=== PATIENT | female | born 1995 | race Caucasian/White ===

== ENCOUNTER 2024-04-27 16:41 | Outpatient (CLI) | payer OTHER, SELFPAY ==
[2024-04-28 17:53] LABS: Beta HCG Quantitative 73.32 mIU/ML
== END 2024-04-27 16:42 | disposition home or self-care (01) ==
LOC: ANHLAB 16:46
PROVIDERS: PCP Pediatrics; Visit Provider Obstetrics & Gynecology
DX: Z32.00 Encounter for pregnancy test, result unknown (principal)
CPT/HCPCS: 36415; 84702

== ENCOUNTER 2024-05-01 16:14 | Outpatient (CLI) | payer OTHER, SELFPAY ==
[2024-05-01 17:49] LABS: Beta HCG Quantitative 447.24 mIU/ML
== END 2024-05-01 16:15 | disposition home or self-care (01) ==
LOC: ANHLAB 16:16
PROVIDERS: PCP Pediatrics; Visit Provider Obstetrics & Gynecology
DX: Z32.00 Encounter for pregnancy test, result unknown (principal)
CPT/HCPCS: 36415; 84702

== ENCOUNTER 2024-12-14 11:17 | Outpatient (CLI) | payer OTHER, SELFPAY ==
--- OUTSIDE RECORDS SUMMARY | 2024-12-14 11:24 | XMS_ITS | Clinical Summary ---
Author Organization [facility] Virtual Care Address [address] [place] [phone] Phone Care Team Providers Care Butane Compressor Operator Name Role Phone Unknown, Notinfile Unavailable Unavailable Usman Gottlieb MD Primary Care Provider [phone] Zarina Owens MD Unavailable [phone] Beka Lo MD Unavailable [phone] Allergies No known active allergies Medications vit no.124/iron/foli c ( VITAMIN ORAL) Take by mouth Active Active Problems Problem Noted Date Diagnosed Date Encounter for well adult exam without abnormal f indings 02/25/2021 Assessment & Plan (02/25/2021 10:28 AM CDT): A yearly well adult exam has been performed today. Lillian Calloway is up to date on screening tests. She is in need of None- no screening indicated at this time- these have been ordered. She is not up to date on needed preventative vaccinations; She is in need of Tdap/Td and Influenza. These have been ordered/arranged unless otherwise indicated. Oral contraceptive use 11/15/2017 Contraceptive management 08/28/2015 Overview (10/05/2024): Encounter for initial prescription of other contraceptives;Recorded Elsewhere: No Location: [facility] Source: EHR Chronic: N Practice ID: [id number] Billable Time: 03:00:00 PM Encounter for specialized medical examination Acute upper respiratory infection 07/19/2014 Neoplasm of uncertain behavior of skin 3 Acne 05/17/2012 Estimated Date of Delivery Comme nts Yes 01/11/2025 Encounters Date Type Department Care Team Description 10/05/2024 3:30 PM CDT Office Visit [facility] Primary Care at [address] [phone] Usman Gottlieb MD Well adult exam (Primary Dx); Mixed hyperlipidemia; Need for hepatitis C screening test 10/02/2024 Results Follow-Up [facility] Primary Care at [address] [phone] Usman Gottlieb MD Lipid panel 09/27/2024 3:46 PM CDT - 09/27/2024 11:59 PM CD[place] [address] Lipid screening Discharge Disposition: Discharge to home or self care 09/27/2024 3:45 PM CDT Lab [facility] Outpatient Lab at [address] [phone] from Last 3 Months Immunizations Immunization Administration Dates Next Due DTaP 5 Pertussis 12/20/2002, 0,05/17/1998,03/14,01/07/1998 HPV, Quadrivalent 08/20/2012 HPV, Unspecified 08/20/2012,03/16/2012, 2 Hep A, Unspecified 01/06/2012,10/10/2007 Hep B, Unspecified 08/16/1998,1997, 998 HiB 05/13/1999, 9,03/14/1998,01/07 IPV 12/20/2002, 9,03/14/1998,01/07 Influenza, Quadrivalent, Spl it, Intramuscular 01/25/2015 Influenza, Quadrivalent, Spl it, Preservative Free, Intramuscular 02/24/2021,02/22/2019 Influenza, Trivalent, Preser vative Free, Intramuscular 04/02/2016 Influenza, Unspecified 02/22/2020(Deferr ed: Patient Refused),01/25/2015,03/16/2012 MMR 12/20/2002,1998 Meningococcal ACWY, Unspecified 01/25/2015,12/12 Meningococcal B, OMV (Bexsero) 09/06/2018,2018 Meningococcal B, unspecified 09/06/2018,08/06/19 19 Meningococcal MCV4P (Menactra) 01/25/2015 PPD TEST 12/01/2021,1998 Tdap 01/17/2010 Varicella 10/10/2007,02/10/1999 Surgical History Surgery Date Site/Laterality Comments ADENOIDECTOMY 05/10/2000 - 05/09/2001 MYRINGOTOMY W/ TUBES 05/10/2000 - 05/09/2001 Medical History Medical History Date Comments Hyperhidrosis Family History Medical History Relation Name Comments No Known Problems Father Cancer Maternal Grandfather Abdulaziz Piedra Rheum arthritis Maternal Grandfather Abdulaziz Piedra Stomach cancer Maternal Grandfather Abdulaziz Piedra No Known Problems Maternal Grandmother No Known Problems Mother No Known Problems Paternal Grandfather No Known Problems Paternal Grandmother No Known Problems Sister Relation Name Status Comments Father Alive Maternal Grandfather Abdulaziz Piedra Maternal Grandmother Alive Mother Alive Paternal Grandfather Alive Paternal Grandmother Alive Sister Alive Social History Tobacco Use Types Packs/Day Years Used Date Smoking Tobacco: Never Smokeless Tobacco: Never Alcohol Use Standard Drinks/Week Comments No 0 (1 standard drink = 0.6 oz pur e alcohol) Humiliation, Afraid, Rape, and Kick questionnair e Answer Date Recorded Within the last year, have y ou been afraid of your partner or ex-partner? No 02/24/2021 Within the last year, have y ou been humiliated or emotionally abused in other ways by your partner or ex-partner? No Within the last year, have y ou been kicked, hit, slapped, or otherwise physically hurt by your partner or ex-partner? No 02/24/2021 Within the last year, have y ou been raped or forced to have any kind of sexual activity by your partner or ex-partner? No 02/24/2021 Social Connection and Isolat ion Panel [NHANES] Answer Date Recorded In a typical week, how many times do you talk on the phone with family, friends, or neighbors? More than three times a week 02/24/2021 Frequency of Social Gatherin gs with Friends and Family Not on file 02/24/2021 How often do you attend chur ch or faith services? Never 02/24/2021 Do you belong to any clubs o r organizations such as adventist groups, unions, fraternal or athletic groups, or school groups? No 02/24/2021 How often do you attend meet ings of the clubs or organizations you belong to? Never 02/24/2021 Are you , , di vorced, , never , or living with a partner? Living with partner 02/24/2021 AUDIT-C Answer Date Recorded Q1: How often do you have a drink containing alcohol? Never 10/05/2024 Q2: How many drinks containi ng alcohol do you have on a typical day when you are drinking? Patient does not drink Q3: How often do you have si x or more drinks on one occasion? Never 10/05/2024 PHQ-2 Answer Date Recorded PHQ-2 Total Score (If total score is 3 or more points, staff should administer the PHQ-9) 0 10/05/2024 Exercise Vital Sign Answer Date Recorde d On average, how many days pe r week do you engage in moderate to strenuous exercise (like a brisk walk)? 0 days Minutes of Exercise per Session Not on file 02/24/2021 Education Answer Date Recorded What is the highest level of school you have completed or the highest degree you have received? 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 Not on file Not on file Obstetrics History Para Term AB IAB SAB Ectopic Multiple Livin g Live Births 1 Date Outcome GA Total Labor Labor/2nd/3rd Weight Sex Type Anes PTL Angela A1 A5 Name Clin Current Last Filed Vital Signs Vital Sign Reading Time Taken Comments Blood Pressure 120/74 10/05/2024 3:29 PM CDT Pulse 91 10/05/2024 3:29 PM CDT Temperature 36 C (96.8 F) 10/05/2024 3:29 PM CDT Respiratory Rate 14 10/05/2024 3:29 PM CDT Oxygen Saturation 98% 10/05/2024 3:29 PM CDT Inhaled Oxygen Concentration - - Weight 72.6 kg (160 lb) 10/05/2024 3:29 PM CDT Height 160 cm (5' 3) 10/05/2024 3:29 PM CDT Body Mass Index 28.34 10/05/2024 3:29 PM CDT Plan of Treatment Health Maintenance Due Date Last Done Comments Cervical Cancer Screening 1997 Hepatitis C Screening 1997 DTaP/Tdap/Td Vaccine (7 - Td or Tdap) 01/18/2020 01/17/2010, 12/20/2002, 05/13/1999, Additional history exists Covid-19 Vaccine ( season) 2024 05/25/2021, 08/03/2020, 07/09/2020 Influenza Vaccine (#1) 2025 , 02/22/2019, 04/02/2016, Additional history exists Depression Screening 10/05/2025 10/05/2024, 02/25/20 21 Regular Well Visit/Exam 18-64 10/05/2025 10/05/2024, 02/24/2021 Hepatitis B Screening Completed 08/16/1998 , 1997, 1997 Varicella Vaccines Completed 10/10/2007, 02/10/1999 HPV Vaccines Completed 08/20/2012, 08/08, 03/16/2012, Additional history exists Pneumococcal vaccine <65 Aged Out No longer eligible based on patient's age to complete this topic Procedures Procedure Name Priority Date/Time Associated Diagnosis Comments LIPID PANEL Routine 09/27/2024 3:46 PM CDT Lipid screening from Last 3 Months Results * (ABNORMAL) Lipid panel (09/27/2024 3:46 PM CDT) Cholesterol 277(H) 30 - 199 mg/dL Comment: Interpretive Data Ages < or = 19 years Acceptable: <170 mg/dL Borderline high: 170-199 mg/dL High: >or= 200 mg/dL Ages > or = 20 years Desirable: <200 mg/dL Borderline high: 200-239 mg/dL High: >or= 240 mg/dL Literature References: 1. Expert Panel on Integrated Guidelines for Cardiovascular Health and Risk Reduction in Children and Adolescents. Pediatrics 2011;128:S213 2. NCEP Expert Panel. Circulation 2004;110:227 Current Interpretive Data was last revised on 2017. Triglycerides 177(H) <=149 mg/dL [facility] Comment: Interpretive Data Ages < or = 9 years Acceptable: <75 mg/dL Borderline high: 75-99 mg/dL High: >or= 100 mg/dL Ages 10 to 20 years Acceptable: <90 mg/dL Borderline high: 90-129 mg/dL High: >or= 130 mg/dL Ages > or = 20 years Desirable: <150 mg/dL Borderline high: 150-199 mg/dL High: 200-499 mg/dL Very high: >or= 499 mg/dL Literature References: 1. Expert Panel on Integrated Guidelines for Cardiovascular Health and Risk Reduction in Children and Adolescents. Pediatrics 2011;128:S213 2. NCEP Expert Panel. Circulation 2004;110:227 Current Interpretive Data was last revised on 2017. HDL 82 >=40 mg/dL [facility] Comment: Interpretive Data Ages < or = 19 years Acceptable: >45 mg/dL Borderline low: 40-45 mg/dL Low: <40 mg/dL Ages > or = 20 years Desirable: >or= 60 mg/dL Low: <40 mg/dL Literature References: 1. Expert Panel on Integrated Guidelines for Cardiovascular Health and Risk Reduction in Children and Adolescents. Pediatrics 2011;128:S213 2. NCEP Expert Panel. Circulation 2004;110:227 Current Interpretive Data was last revised on 2017. LDL, calculated 163(H) <=129 mg/dL [facility] Comment: Interpretive Data Ages < or = 19 years Acceptable: <110 mg/dL Borderline high: 110-129 mg/dL High: >or= 130 mg/dL Ages > or = 20 years Optimal: <100 mg/dL Near optimal: 100-129 mg/dL Borderline high: 130-159 mg/dL High: >160 mg/dL Calculated using the Jose Angel LDL-C estimating equation. This equation was implemented on 2023. Prior to this date LDL-C was estimated using the Friedewald equation. Literature References: 1. Expert Panel on Integrated Guidelines for Cardiovascular Health and Risk Reduction in Children and Adolescents. Pediatrics 2011;128:S213 2. NCEP Expert Panel. Circulation 2004;110:227 3. Jose Angel M et al. FARRUKH Cardiol. 2020 September 07;5(5):540-548. doi: 10.1001/[email or web address] Current Interpretive Data was last revised on 2023. Non-HDL Cholesterol 195 mg/dL [facility] Comment: Interpretive Data Ages < or = 19 years Acceptable: <120 mg/dL Borderline high: 120-144 mg/dL High: >145 mg/dL Ages > or = 20 years When triglycerides are >200 mg/dL, Non-HDL cholesterol is a secondary target of therapy with treatment goals that are 30 mg/dL greater than the LDL cholesterol target. Literature References: 1. Expert Panel on Integrated Guidelines for Cardiovascular Health and Risk Reduction in Children and Adolescents. Pediatrics 2011;128:S213 2. NCEP Expert Panel. Circulation 2004;110:227 Current Interpretive Data was last revised on 2017. Chol/HDL ratio 3 [facility] Blood 09/27/2024 3:46 PM CDT 09/27/2024 9:18 PM CDT us Usman Gottlieb MD LAB BLOOD ORDERABLES Final Result [facility] [id number] Department [place] [address] from Last 3 Months Insurance [facility] PLUS [facility] CHO[facility] PLUS Care Teams Butane Compressor Operator Relationship Specialty Start Date End Date Usman Gottlieb MD PCP - General Family Medicine 02/24/21 Unknown, Notinfile 01/29/21 Zarina Owens MD [address] [place] [address] Consulting Physician Dermatology 02/24/21 Beka Lo MD [address] [place] [address] Referring Physician Obstetrics and Gynecology 10/05/24
[2024-12-14 11:45] VITALS: BP 113/87; PULSE 120
[2024-12-14 11:51] LABS: Hematocrit 35.3 % (37.0-47.0); Hemoglobin 11.5 g/dL (12.0-15.0); Immature Granulocyte Percent A 1.1 % (0-0.5); Lymphocytes Absolute Auto 1.61 K/mm3 (0.9-3.2); Mean Corpuscular HGB Conc 32.6 g/dl (32-36); Mean Corpuscular Hemoglobin 26.7 pg (26-34); Mean Corpuscular Volume 82.1 fl (80-100); Nucleated Red Blood Cells Absolute Auto 0.000 K/mm3 (0.0-0.012); Nucleated Red Blood Cells Perc 0.0 % (0.0-0.2); Platelet Count Result 249 k/mm3 (150-375); Red Blood Count 4.30 M/mm3 (4.2-5.4); White Blood Count 10.2 K/mm3 (4.5-10.0)
[2024-12-14 11:58] LABS: Add Urine Microscopic? YES; Appearance Urine Cloudy (Clear); Glucose Urine UA Negative (Negative); Leukocyte Esterase Ur Negative LEU/UL (Negative); Nitrate Urine Negative (Negative); Non Pathogenic Casts 0-2; Specific Grav Ur 1.013 (1.001-1.035)
[2024-12-14 12:00] VITALS: BP 112/76; PULSE 109
[2024-12-14 12:15] VITALS: BP 111/78; PULSE 107
[2024-12-14 12:24] LABS: Alanine Aminotransferase 19 U/L (6-35); Albumin Level 3.7 g/dL (3.5-5.1); Alkaline Phosphatase 162 U/L (38-126); Anion Gap 9 mmol/L (4-12); Aspartate Amino Transferase 30 U/L (14-36); Bilirubin,Total 0.6 mg/dL (0.2-1.3); Blood Urea Nitrogen 6 mg/dL (7-17); Calcium 9.1 mg/dL (8.4-10.2); Carbon Dioxide 17 mmol/L (22-30); Chloride 108 mmol/L (98-107); Estimated CRCL calculation 152 ml/min; Estimated Glomerular Filt Rate > 60; Glucose 75 mg/dL (65-110); Potassium 3.7 mmol/L (3.4-5.0); Sodium 134 mmol/L (137-145); Total Protein 7.1 g/dL (6.3-8.2); Uric Acid 4.5 mg/dL (2.5-7.5)
[2024-12-14 12:25] LABS: Total Protein Urine Random 14 mg/dL; Ur Ttl Prot Creatinine Ratio 0.21 mg/mg (0-0.20)
[2024-12-14 12:30] VITALS: BP 122/87; PULSE 99
[2024-12-14 12:32] VITALS: BP 113/78; PULSE 99
[2024-12-14] MEDS: ACETAMINOPHEN/BUTALBITAL/CAFFEINE 325-50-40 MG TABLET (FIORICET) 1 TAB PO (12:43)
[2024-12-14 12:59] VITALS: BP 112/76; PULSE 99
== END 2024-12-14 12:46 | disposition home or self-care (01) ==
LOC: ANHOBOP 11:22 → ANHOBPP 11:23
PROVIDERS: PCP Family Medicine; Visit Provider Obstetrics & Gynecology
DX: Z34.90 Encounter for supervision of normal pregnancy, unspecified, unspecified trimester (principal); R03.0 Elevated blood-pressure reading, without diagnosis of hypertension; Z3A.00 Weeks of gestation of pregnancy not specified
CPT/HCPCS: 36415; 59025; 80053; 81001; 82570; 84156; 84550; 85025; 99199; A9270

== ENCOUNTER 2024-12-22 15:08 | Outpatient (CLI) | payer OTHER, SELFPAY ==
[2024-12-22] VITALS (7 sets, daily range): BP systolic 109–130; BP diastolic 71–82; PULSE 104–114
--- OUTSIDE RECORDS SUMMARY | 2024-12-22 15:13 | XMS_ITS | Clinical Summary ---
Author Organization [facility] Virtual Care Address [address] [place] [phone] Phone Care Team Providers Care Intelligence Officer Basic Name Role Phone Unknown, Notinfile Unavailable Unavailable Usman Gottlieb MD Primary Care Provider [phone] Zarina Owens MD Unavailable [phone] Beka Lo MD Unavailable [phone] Allergies No known active allergies Medications vit [...] prescription of other contraceptives;Recorded Elsewhere: No Location: [facility] Source: EHR Chronic: N Practice ID: [id number] Billable Time: 03:00:00 PM Encounter for specialized medical examination Acute upper respiratory infection 07/19/2014 Neoplasm of uncertain behavior of skin 3 Acne 05/17/2012 Estimated Date of Delivery Comme nts Yes 01/11/2025 Encounters Date Type Department Care Team Description 10/05/2024 3:30 PM CDT Office Visit [facility] Primary Care at [address] [phone] Usman Gottlieb MD Well adult exam (Primary Dx); Mixed hyperlipidemia; Need for hepatitis C screening test 10/02/2024 Results Follow-Up [facility] Primary Care at [address] [phone] Usman Gottlieb MD Lipid panel 09/27/2024 3:46 PM CDT - 09/27/2024 11:59 PM [place] [address] Lipid screening Discharge Disposition: Discharge to home or self care 09/27/2024 3:45 PM CDT Lab [facility] Outpatient Lab at [address] [phone] from Last 3 Months Immunizations [...] or ex-partner? No 02/24/2021 Social Connection and Isolation Panel Answer Date Recorded In a typical week, how many times do you talk on the phone with family, friends, or neighbors? More than three times a week 02/24/2021 Frequency of Social Gatherin gs with Friends and Family Not on file 02/24/2021 How often do you attend chur ch or rastafarian services? Never 02/24/2021 Do you belong to any clubs o r organizations such as faith groups, unions, fraternal or athletic groups, or [...] on file Legal Sex Female 11:29 PM NURSE PRACTITIONER PHYSICIAN ASSISTANT Gender Identity Female 03/21/2023 5:13 PM NURSE PRACTITIONER PHYSICIAN ASSISTANT Sexual Orientation Straight 03/21/2023 5: 13 PM NURSE PRACTITIONER PHYSICIAN ASSISTANT Occupation Industry Job Start Date Job End [...] Expert Panel. Circulation 2004;110:227 3. Jose Angel Hess et al. FARRUKH Cardiol. 2020 September 07;5(5):540-548. [...] LAB BLOOD ORDERABLES Final Result [facility] [address] Department [place] [address] from Last 3 Months Insurance [facility] CHOICE PLUS [facility] H[facility]/PPO Address: [address] [address] [place] [address] [facility] [employer] Address: [facility] [address] [place] [address] [facility] [employer] Address: [facility] [address] [place] [address] [facility] CHOICE PLUS [facility] HMO/PPO Address: [address] [address] [place] [address] Care Teams Intelligence Officer Basic Relationship Specialty Start Date End Date Usman Gottlieb MD PCP - General Family Medicine 02/24/21 Unknown, Notinfile 01/29/21 Zarina Owens MD [address] [place] [address] Consulting Physician Dermatology 02/24/21 Beka Lo MD [address] [place] [address] Referring Physician Obstetrics and Gynecology 10/05/24
[2024-12-22 15:42] LABS: Hematocrit 34.3 % (37.0-47.0); Hemoglobin 10.8 g/dL (12.0-15.0); Immature Granulocyte Percent A 0.9 % (0-0.5); Lymphocytes Absolute Auto 1.92 K/mm3 (0.9-3.2); Mean Corpuscular HGB Conc 31.5 g/dl (32-36); Mean Corpuscular Hemoglobin 25.8 pg (26-34); Mean Corpuscular Volume 82.1 fl (80-100); Nucleated Red Blood Cells Absolute Auto 0.000 K/mm3 (0.0-0.012); Nucleated Red Blood Cells Perc 0.0 % (0.0-0.2); Platelet Count Result 256 k/mm3 (150-375); Red Blood Count 4.18 M/mm3 (4.2-5.4); White Blood Count 12.2 K/mm3 (4.5-10.0)
[2024-12-22 15:47] LABS: Add Urine Microscopic? YES; Appearance Urine Cloudy (Clear); Glucose Urine UA Negative (Negative); Leukocyte Esterase Ur 1+ LEU/UL (Negative); Nitrate Urine Negative (Negative); Non Pathogenic Casts 0-2; Specific Grav Ur 1.016 (1.001-1.035)
[2024-12-22 15:51] LABS: Alanine Aminotransferase 19 U/L (6-35); Albumin Level 3.7 g/dL (3.5-5.1); Alkaline Phosphatase 155 U/L (38-126); Anion Gap 6 mmol/L (4-12); Aspartate Amino Transferase 33 U/L (14-36); Bilirubin,Total 0.5 mg/dL (0.2-1.3); Blood Urea Nitrogen 8 mg/dL (7-17); Calcium 9.4 mg/dL (8.4-10.2); Carbon Dioxide 21 mmol/L (22-30); Chloride 107 mmol/L (98-107); Estimated Glomerular Filt Rate > 60; Glucose 92 mg/dL (65-110); Potassium 3.9 mmol/L (3.4-5.0); Sodium 134 mmol/L (137-145); Total Protein 7.0 g/dL (6.3-8.2); Uric Acid 4.8 mg/dL (2.5-7.5)
[2024-12-22 15:52] LABS: Total Protein Urine Random 9 mg/dL; Ur Ttl Prot Creatinine Ratio 0.12 mg/mg (0-0.20)
--- NOTE | 2024-12-22 16:49 | PC.NURSE ---
Dr Rizzo informed of lab results and BP. OK to dc home with precautions.
== END 2024-12-22 16:55 | disposition home or self-care (01) ==
LOC: ANHOBOP 15:11 → ANHOBPP 15:13
PROVIDERS: PCP Family Medicine; Visit Provider Obstetrics & Gynecology
DX: O13.9 Gestational [pregnancy-induced] hypertension without significant proteinuria, unspecified trimester (principal); Z3A.00 Weeks of gestation of pregnancy not specified
CPT/HCPCS: 36415; 59025; 80053; 81001; 82570; 84156; 84550; 85025; 87086; 99199

== ENCOUNTER 2025-01-01 16:14 | Outpatient (CLI) | payer OTHER, SELFPAY ==
--- NOTE | 2025-01-01 17:00 | PC.NURSE ---
Dr Lo informed of negative ROM plus, OK to dc home.
[2025-01-01 17:35] LABS: OBXCEM ROM Plus Negative (Negative)
== END 2025-01-01 17:05 | disposition home or self-care (01) ==
LOC: ANHOBOP 16:59 → ANHLDR 17:00
PROVIDERS: PCP Pediatrics; Visit Provider Obstetrics & Gynecology
DX: O42.90 Premature rupture of membranes, unspecified as to length of time between rupture and onset of labor, unspecified weeks of gestation (principal); Z3A.00 Weeks of gestation of pregnancy not specified
CPT/HCPCS: 59025; 84112; 99199

== ENCOUNTER 2025-01-08 17:39 | Observation (INO) | payer OTHER, SELFPAY ==
[2025-01-08 21:14] VITALS: BMI 28.6
--- NOTE | 2025-01-08 21:14 | OBADM ---
This patient, Lillian Lewis, admitted to the OB room Labor/Delivery/Recovery 107 for observation. Patient/family oriented to hospital policies and general routines including ID bracelet, bed and alarms, visiting hours, pain management, procedures, bathroom and other care routines, personal items, smoking policy, room service/diet, and visiting hours. Patient/Family are encouraged to report perceived risks to care and to ask questions if they do not understand what they are told or what they should do.
--- NOTE | 2025-01-09 14:26 | PM.OBTRLD ---
OB - Triage/Final Diagnosis Visit Information Comments/Additional reasons for admission: I have assessed the risk for this patient, Lillian Lewis, and determined that she would benefit from observation care. Evaluation Vital signs: Vital Signs - 24 hr 01/08/25 21:14 Oxygen Delivery Room Air Final Diagnosis (1) Irregular uterine contractions: Code(s): O47.9 - False labor, unspecified Status: Acute
== END 2025-01-08 21:15 | disposition home or self-care (01) ==
PROVIDERS: Admitting Provider Obstetrics & Gynecology; PCP Pediatrics; Visit Provider Obstetrics & Gynecology
DX: O47.03 False labor before 37 completed weeks of gestation, third trimester (principal); Z3A.39 39 weeks gestation of pregnancy
CPT/HCPCS: G0378; G0379

== ENCOUNTER 2025-01-09 01:47 | Inpatient (IN) | payer OTHER, SELFPAY ==
[2025-01-09] VITALS (380 sets, daily range): BP systolic 84–160; BP diastolic 27–124; PULSE 43–134; RESP 14–22; TEMP 36.6–39.1; O2SAT 93–100
[2025-01-09] MEDS: LACTATED RINGERS 1,000 ML 125 ML IV CONT ×2 (02:08→03:46)
[2025-01-09 02:17] LABS: Hematocrit 35.7 % (37.0-47.0); Hemoglobin 11.4 g/dL (12.0-15.0); Immature Granulocyte Percent A 0.6 % (0-0.5); Lymphocytes Absolute Auto 1.36 K/mm3 (0.9-3.2); Mean Corpuscular HGB Conc 31.9 g/dl (32-36); Mean Corpuscular Hemoglobin 25.3 pg (26-34); Mean Corpuscular Volume 79.3 fl (80-100); Nucleated Red Blood Cells Absolute Auto 0.000 K/mm3 (0.0-0.012); Nucleated Red Blood Cells Perc 0.0 % (0.0-0.2); Platelet Count Result 256 k/mm3 (150-375); Red Blood Count 4.50 M/mm3 (4.2-5.4); White Blood Count 13.2 K/mm3 (4.5-10.0)
--- NOTE | 2025-01-09 02:17 | LDADM ---
This patient, Lillian Lewis, was admitted to Labor/Delivery/Recovery 107 on 01/09/25 at 01:47. Plans for labor, pain management and were discussed with patient. Patient/family oriented to hospital policies and general routines including ID bracelet, bed and alarms, visiting hours, pain management, procedures, bathroom and other care routines, personal items, smoking policy, room service/diet and guest tray routines, security routines, and visiting hours. Patient/Family are encouraged to report perceived risks to care and to ask questions if they do not understand what they are told or what they should do. See OBIX for further documentation.
[2025-01-09 02:37] LABS: OBXCEM ROM Plus Positive (Negative)
--- NOTE | 2025-01-09 03:03 | P.PNAN_ITS ---
Anes - Eval Pre Procedure Procedure: Labor epidural Date/Time: 01/09/25 03:03 Surgeon: Goldy Preop Diagnosis: pain during labor Pre Op Diagnosis: Leaking Patient Data Age: 29 Gender: F Height: 1.6 m Weight: 77 kg Last Vital Signs Pulse 117 H 01/09/25 03:01 BP 141/91 H 01/09/25 03:01 Pulse Ox 98 01/09/25 03:01 O2 Del Method Room Air 01/09/25 02:17 Allergies Allergy/AdvReac Type Severity Reaction Status Date / Time No Known Allergies Allergy Verified 01/09/25 02:14 Home Medications ?Medication ?Instructions ?Recorded ?Confirmed ?Type docosahexaenoic acid 200 mg mg PO 11/13/24 01/02/25 Hi story capsule ( DHA) Laboratory Tests 01/09/25 01/09/25 02:00 02:11 WBC 13.2 H K/mm3 (4.5-10.0) RBC 4.50 M/mm3 (4.2-5.4) Hgb 11.4 L g/dL (12.0-15.0) Hct 35.7 L % (37.0-47.0) MCV 79.3 L fl (80-100) MCH 25.3 L pg (26-34) MCHC 31.9 L g/dl (32-36) RDW 14.7 H % (11.5-14.5) Plt Count 256 k/mm3 (150-375) MPV 10.8 H fl (7.4-10.4) Immature Gran % (Auto) 0.6 H % (0-0.5) Neut % (Auto) 81.0 H % (45.5-73.1) Lymph % (Auto) 10.3 L % (18.3-44.2) [place] % (Auto) 7.3 % (2.6-8.5) Eos % (Auto) 0.5 % (0-4.4) Baso % (Auto) 0.3 % (0.2-1.2) Lymph # (Auto) 1.36 K/mm3 (0.9-3.2) [place] # (Auto) 1.0 H K/mm3 (0.1-0.6) Eos # (Auto) 0.1 K/mm3 (0-0.3) Baso # (Auto) 0.0 K/mm3 (0.0-0.1) Abs Immat Gran (auto) 0.08 H K/mm3 (0.00-0.031) Absolute Neuts (auto) 10.7 H K/mm3 (1.3-6.7) Absolute Nucleated RBC 0.000 K/mm3 (0.0-0.012) Nucleated RBC % 0.0 % (0.0-0.2) Membranes Rupture Rom plus positive (Negative) Blood Type A Positive Antibody Screen Pending Patient hx anesthesia problems: none Family hx anesthesia problems: none Results Review: All pre-operative results and documents have been reviewed as part of the pre- operative evaluation. [facility] Past Medical History Medical History (Updated 01/09/25 @ 03:04 by Julisa Song CRNA) IUP (intrauterine ), incidental Axillary hyperhidrosis Surgical History Surgical History History of ear surgery Family History Family History Other No pertinent family history Social History Social History Smoking status: Never smoker Alcohol intake: current Substance use: never Lack of Transportation: No Lack of Food: Never True Current Housing: I Have Housing Concerned About Future Housing: No Difficulty Paying Gas/Electric Bills: No Difficulty Paying for Meds: No Currently Unemployed: No Education: Bachelor's Degree Difficulty w/ Childcare or Family Care: No Spiritual care concerns: No Exam Day of Procedure 01/09/25 03:03
[2025-01-09 03:04] LABS: Syphilis IgG/IgM Antibody Non-Reactive (Nonreactive)
[2025-01-09] MEDS: PHENYLEPHRINE 1,000 MCG/10 ML SYRINGE 100 MCG IV PUSH ×2 (04:39→04:52)
[2025-01-09] MEDS: ONDANSETRON INJ 4 MG/2 ML VIAL IV PUSH ×2 (05:02→14:36)
[2025-01-09] MEDS: LACTATED RINGERS 1,000 ML 999 ML IV CONT ×3 (08:17→17:55)
--- NOTE | 2025-01-09 08:45 | P.HP_ITS ---
H&P: HPI History of Present Illness Date/Time: 01/09/25 08:45 Chief Complaint: Akua rae Narrative: 29 y/o at 39 5/7 weeks here after a gush of fluid at 0130. RomPlus positive. She is now comfortable with epidural. GBS neg. GCT 74. Review of Systems Review of Systems: All systems reviewed & are unremarkable except as noted in HPI and below PMFSH Past Medical History Medical History IUP (intrauterine ), incidental Axillary hyperhidrosis Surgical History Surgical History History of ear surgery Family History Family History Other No pertinent family history Social History Social History Smoking status: Never smoker Alcohol intake: current Substance use: never Lack of Transportation: No Lack of Food: Never True Current Housing: I Have Housing Concerned About Future Housing: No Difficulty Paying Gas/Electric Bills: No Difficulty Paying for Meds: No Currently Unemployed: No Education: Bachelor's Degree Difficulty w/ Childcare or Family Care: No Spiritual care concerns: No Meds Home Medications and Allergies Home Medications ?Medication ?Instructions ?Recorded ?Confirmed ?Type docosahexaenoic acid 200 mg mg PO 11/13/24 01/02/25 Hi story capsule ( DHA) Allergies Allergy/AdvReac Type Severity Reaction Status Date / Time No Known Allergies Allergy Verified 01/09/25 02:14 Vital Signs Vital Signs - 24 hr 01/09/25 02:11 01/09/25 02:16 01/09/25 02:17 Temperature Pulse Rate 116 H Blood Pressure 125/84 Pulse Oximetry 98 99 Oxygen Delivery Room Air 01/09/25 02:21 01/09/25 02:26 01/09/25 02:31 Temperature Pulse Rate 108 H Blood Pressure 117/79 Pulse Oximetry 99 99 98 Oxygen Delivery 01/09/25 02:36 01/09/25 02:41 01/09/25 02:46 Temperature Pulse Rate 108 H Blood Pressure 126/92 H Pulse Oximetry 99 100 98 Oxygen Delivery 01/09/25 02:51 01/09/25 02:56 01/09/25 03:01 Temperature Pulse Rate 117 H Blood Pressure 141/91 H Pulse Oximetry 100 99 98 Oxygen Delivery 01/09/25 03:02 01/09/25 03:05 01/09/25 03:06 Temperature 97.8 F Pulse Rate 110 H Blood Pressure 133/87 Pulse Oximetry 99 Oxygen Delivery 01/09/25 03:11 01/09/25 03:15 01/09/25 03:16 Temperature Pulse Rate 107 H 105 H Blood Pressure 127/84 127/84 Pulse Oximetry 99 99 Oxygen Delivery 01/09/25 03:21 01/09/25 03:23 01/09/25 03:26 Temperature Pulse Rate 112 H 118 H 121 H Blood Pressure 127/74 123/75 107/63 Pulse Oximetry 98 98 Oxygen Delivery 01/09/25 03:28 01/09/25 03:31 01/09/25 03:33 Temperature Pulse Rate 113 H 112 H 105 H Blood Pressure 117/71 122/63 106/63 Pulse Oximetry 97 Oxygen Delivery 01/09/25 03:36 01/09/25 03:38 01/09/25 03:40 Temperature Pulse Rate 109 H 96 94 Blood Pressure 95/52 L 123/74 127/81 Pulse Oximetry 99 Oxygen Delivery 01/09/25 03:41 01/09/25 03:42 01/09/25 03:43 Temperature Pulse Rate 97 97 Blood Pressure 125/82 123/78 Pulse Oximetry 98 Oxygen Delivery 01/09/25 03:45 01/09/25 03:46 01/09/25 03:47 Temperature Pulse Rate 97 95 Blood Pressure 131/78 124/78 Pulse Oximetry 99 Oxygen Delivery 01/09/25 03:50 01/09/25 03:51 01/09/25 03:53 Temperature Pulse Rate 90 92 Blood Pressure 160/124 H 103/51 L 98/58 L Pulse Oximetry 100 Oxygen Delivery 01/09/25 03:55 01/09/25 03:56 01/09/25 03:57 Temperature Pulse Rate 89 86 Blood Pressure 103/55 L 99/49 L Pulse Oximetry 99 Oxygen Delivery 01/09/25 03:59 01/09/25 04:01 01/09/25 04:03 Temperature Pulse Rate 89 84 88 Blood Pressure 101/50 L 99/48 L 100/54 L Pulse Oximetry 99 Oxygen Delivery 01/09/25 04:05 01/09/25 04:06 01/09/25 04:11 Temperature Pulse Rate 89 91 Blood Pressure 97/47 L 99/61 L Pulse Oximetry 99 100 Oxygen Delivery 01/09/25 04:13 01/09/25 04:16 01/09/25 04:17 Temperature Pulse Rate 87 92 Blood Pressure 100/57 L 92/51 L Pulse Oximetry 100 Oxygen Delivery 01/09/25 04:19 01/09/25 04:21 01/09/25 04:23 Temperature Pulse Rate 93 91 87 Blood Pressure 100/50 L 95/50 L 97/52 L Pulse Oximetry 99 Oxygen Delivery 01/09/25 04:25 01/09/25 04:26 01/09/25 04:29 Temperature Pulse Rate 92 88 Blood Pressure 89/60 L 99/49 L Pulse Oximetry 99 Oxygen Delivery 01/09/25 04:31 01/09/25 04:33 01/09/25 04:35 Temperature Pulse Rate 88 97 89 Blood Pressure 84/29 L 102/58 L 88/32 L Pulse Oximetry 100 Oxygen Delivery 01/09/25 04:36 01/09/25 04:37 01/09/25 04:39 Temperature Pulse Rate 90 87 Blood Pressure 92/45 L 94/44 L Pulse Oximetry 99 Oxygen Delivery 01/09/25 04:41 01/09/25 04:43 01/09/25 04:45 Temperature Pulse Rate 77 87 91 Blood Pressure 106/55 L 101/56 L 93/51 L Pulse Oximetry 100 Oxygen Delivery 01/09/25 04:46 01/09/25 04:47 01/09/25 04:49 Temperature Pulse Rate 93 97 Blood Pressure 99/54 L 100/62 Pulse Oximetry 100 Oxygen Delivery 01/09/25 04:51 01/09/25 04:53 01/09/25 04:55 Temperature 98.8 F Pulse Rate 91 90 85 Blood Pressure 92/27 L 103/53 L 117/53 L Pulse Oximetry 100 Oxygen Delivery 01/09/25 04:56 01/09/25 04:57 01/09/25 04:59 Temperature Pulse Rate 87 88 Blood Pressure 98/52 L 97/52 L Pulse Oximetry 99 Oxygen Delivery 01/09/25 05:01 01/09/25 05:03 01/09/25 05:05 Temperature Pulse Rate 97 93 94 Blood Pressure 104/58 L 106/42 L 94/48 L Pulse Oximetry 99 Oxygen Delivery 01/09/25 05:06 01/09/25 05:07 01/09/25 05:09 Temperature Pulse Rate 90 94 Blood Pressure 99/54 L 109/65 Pulse Oximetry 99 Oxygen Delivery 01/09/25 05:11 01/09/25 05:13 01/09/25 05:15 Temperature Pulse Rate 99 98 107 H Blood Pressure 111/69 111/61 118/58 L Pulse Oximetry 99 Oxygen Delivery 01/09/25 05:16 01/09/25 05:17 01/09/25 05:19 Temperature Pulse Rate 127 H 105 H Blood Pressure 108/60 120/72 Pulse Oximetry 100 Oxygen Delivery 01/09/25 05:21 01/09/25 05:23 01/09/25 05:25 Temperature Pulse Rate 114 H 111 H 106 H Blood Pressure 111/64 115/56 L 122/64 Pulse Oximetry 99 Oxygen Delivery 01/09/25 05:26 01/09/25 05:27 01/09/25 05:29 Temperature Pulse Rate 105 H 114 H Blood Pressure 115/57 L 112/56 L Pulse Oximetry 99 Oxygen Delivery 01/09/25 05:31 01/09/25 05:33 01/09/25 05:35 Temperature Pulse Rate 99 114 H 104 H Blood Pressure 116/57 L 101/60 118/61 Pulse Oximetry 99 Oxygen Delivery 01/09/25 05:36 01/09/25 05:37 01/09/25 05:39 Temperature Pulse Rate 115 H 103 H Blood Pressure 102/61 115/59 L Pulse Oximetry 99 Oxygen Delivery 01/09/25 05:41 01/09/25 05:43 01/09/25 05:45 Temperature Pulse Rate 108 H 103 H 107 H Blood Pressure 112/64 104/57 L 102/55 L Pulse Oximetry 99 Oxygen Delivery 01/09/25 05:46 01/09/25 05:47 01/09/25 05:49 Temperature Pulse Rate 102 H 102 H Blood Pressure 112/63 106/55 L Pulse Oximetry 98 Oxygen Delivery 01/09/25 05:51 01/09/25 05:53 01/09/25 05:55 Temperature Pulse Rate 97 107 H 104 H Blood Pressure 114/62 108/56 L 110/61 Pulse Oximetry 99 Oxygen Delivery 01/09/25 05:56 01/09/25 05:57 01/09/25 05:59 Temperature Pulse Rate 104 H 112 H Blood Pressure 117/61 113/55 L Pulse Oximetry 100 Oxygen Delivery 01/09/25 06:01 01/09/25 06:06 01/09/25 06:11 Temperature Pulse Rate 110 H Blood Pressure 104/61 Pulse Oximetry 99 99 99 Oxygen Delivery 01/09/25 06:16 01/09/25 06:21 01/09/25 06:26 Temperature Pulse Rate 122 H Blood Pressure 113/59 L Pulse Oximetry 100 99 99 Oxygen Delivery 01/09/25 06:31 01/09/25 06:36 01/09/25 06:41 Temperature Pulse Rate 102 H Blood Pressure 109/63 Pulse Oximetry 100 99 100 Oxygen Delivery 01/09/25 06:46 01/09/25 06:51 01/09/25 06:56 Temperature 99 F Pulse Rate 98 Blood Pressure 106/62 Pulse Oximetry 99 99 99 Oxygen Delivery 01/09/25 07:01 01/09/25 07:06 01/09/25 07:11 Temperature Pulse Rate 113 H Blood Pressure 117/77 Pulse Oximetry 98 98 99 Oxygen Delivery 01/09/25 07:16 01/09/25 07:21 01/09/25 07:26 Temperature Pulse Rate 115 H Blood Pressure 120/79 Pulse Oximetry 99 99 98 Oxygen Delivery 01/09/25 07:31 01/09/25 07:36 01/09/25 07:41 Temperature Pulse Rate 108 H Blood Pressure 114/62 Pulse Oximetry 99 100 99 Oxygen Delivery 01/09/25 07:46 01/09/25 07:51 01/09/25 07:56 Temperature Pulse Rate 110 H Blood Pressure 113/63 Pulse Oximetry 98 100 99 Oxygen Delivery 01/09/25 08:00 01/09/25 08:01 01/09/25 08:03 Temperature Pulse Rate 103 H 105 H 102 H Blood Pressure 112/66 105/62 112/60 Pulse Oximetry 99 Oxygen Delivery 01/09/25 08:06 01/09/25 08:08 01/09/25 08:11 Temperature Pulse Rate 99 106 H 104 H Blood Pressure 107/58 L 108/64 107/63 Pulse Oximetry 99 98 Oxygen Delivery 01/09/25 08:15 01/09/25 08:16 01/09/25 08:18 Temperature Pulse Rate 117 H 116 H Blood Pressure 117/80 107/73 Pulse Oximetry 99 Oxygen Delivery 01/09/25 08:20 01/09/25 08:23 01/09/25 08:25 Temperature Pulse Rate 108 H 109 H Blood Pressure 116/78 98/54 L Pulse Oximetry 100 100 Oxygen Delivery 01/09/25 08:26 01/09/25 08:28 01/09/25 08:30 Temperature Pulse Rate 97 99 Blood Pressure 105/65 102/63 Pulse Oximetry 100 Oxygen Delivery 01/09/25 08:31 01/09/25 08:33 01/09/25 08:35 Temperature Pulse Rate 99 95 Blood Pressure 101/61 100/58 L Pulse Oximetry 100 Oxygen Delivery 01/09/25 08:36 01/09/25 08:38 01/09/25 08:40 Temperature Pulse Rate 105 H 99 Blood Pressure 101/66 106/67 Pulse Oximetry 100 Oxygen Delivery 01/09/25 08:41 01/09/25 08:44 Temperature Pulse Rate 90 93 Blood Pressure 113/68 86/64 L Pulse Oximetry 100 Oxygen Delivery Exam Const: Other: Well-developed, well-nourished female in no acute distress. Neck: Other: Neck: Trachea midline, no thyromegaly or masses. Resp: Other: Lungs: Normal respiratory effort. Clear to auscultation bilaterally. Cardio: Other: Heart: Regular rate and rhythm with normal S1-S2. GI: Other: ABD: Soft, nontender, nondistended, gravid. No guarding or rebound tenderness. No hepatosplenomegaly. NST reactive. TOCO: contractions every 3-4 min. : Other: Cervix: 4-5/50/-2. Vertex. IUPC placed. Back/Spine/Pelvis: Other: Back: No CVA tenderness. Skin: Other: Skin: No lesions, rashes or ulcers noted. Extrem: Other: Extremities: nontender with no edema Psych: Other: Mental status grossly normal, with normal mood and affect. H&P: Results Labs Labs: Short CBC 01/09/25 Range/Units 02:11 WBC 13.2 H (4.5-10.0) K/mm3 Hgb 11.4 L (12.0-15.0) g/dL Hct 35.7 L (37.0-47.0) % Plt Count 256 (150-375) k/mm3 Assessment and Plan Assessment and plan (1) : Qualifiers: Weeks of gestation: 39 weeks Qualified Code(s): Z3A.39 - 39 weeks gestation of Code(s): Z34.90 - Encounter for supervision of normal , unspecified, unspecified trimester Status: Acute Assessment and Plan: A: SROM at 39 5/7 weeks. P: Augment labor as needed. Anticipate . (2) SROM (spontaneous rupture of membranes): Status: Acute
[2025-01-09] MEDS: OXYTOCIN 30 UNITS/NS 500 ML 30 UNITS/500 ML BAG IV CONT (08:59)
[2025-01-09] MEDS: SODIUM CHLORIDE 0.9% IV 300 ML 600 ML I-UTERINE (09:50)
--- NOTE | 2025-01-09 12:53 | PM.OBPNLAB ---
Pain Control Date/time seen: 01/09/25 12:53 Comments: Feeling back pain. Pelvic Exam Dilation (cm): 5 Effacement (%): 90 station: 0 Contractions Contraction pattern: Irregular Status status: Category l Assessment and Plan Comments: Continue labor
--- NOTE | 2025-01-09 16:40 | PM.OBPNLAB ---
Pain Control Date/time seen: 01/09/25 16:40 Comfortable. AVSS. Xi=719.1 Pelvic Exam Dilation (cm): 5 Effacement (%): 90 station: 0 Contractions Contraction pattern: Irregular Status status: Category l Assessment and Plan Comments: A: IUP at term with SROM. Cervix without meaningful change in 9.5 hours. Arrest of dilation. P: Offered primary . We reviewed risks, benefits, alternatives in detail, and she elects to proceed.
--- NOTE | 2025-01-09 16:43 | WPDHPUPDATE1 ---
History and Physical Update Update Date/Time: 01/09/25 16:43 History and Physical has been reviewed, including an updated exam of the patient. There are NO changes in the patient's condition. Risks, benefits, and alternatives have been discussed and questions answered. Patient agrees to proceed with procedure.
[2025-01-09] MEDS: ACETAMINOPHEN 500 MG TABLET 1000 MG PO ×2 (16:54→22:08)
[2025-01-09] MEDS: AZITHROMYCIN IV 500 MG in SODIUM CHLORIDE 0.9% IV 250 ML IVPB (17:43)
[2025-01-09] MEDS: FAMOTIDINE 20 MG/2 ML VIAL IV PUSH (17:50)
--- NOTE | 2025-01-09 19:12 | P.PCNOB_ITS ---
OB - Delivery Note Procedure Delivery date: 01/09/25 Pre-op diagnosis: Arrest of Dilation Post-op Diagnosis: Same Induction method: None Delivery augmentation: Pitocin Delivery monitor: External FHT, External Uterine and Internal Uterine Procedure Performed: Primary Surgeon: Beka Lo MD Anesthesia type: Epidural Description of Procedure/Findings: Findings: Normal-appearing uterus, tubes and ovaries. Meconium-stained fluid noted at the time of hysterotomy. Techniques: The patient was taken to the operating room where she was prepared and draped in the usual sterile fashion in dorsal supine position with a leftward tilt. She received azithromycin and cefazolin preoperatively. Epidural anesthesia was found to be adequate. A Pfannenstiel skin incision was made and carried through to the underlying layer of the fascia. The fascia was incised in the midline and the incision was extended laterally. The fascia was dissected free of the underlying rectus muscles. The rectus muscles were in the midline. The peritoneum was identified, tented up and entered sharply. The peritoneal incision was extended superiorly and inferiorly with good visualization of the bladder. The bladder blade was placed. The vesicouterine peritoneum was identified, tented up and entered sharply. The incision was extended laterally and the bladder flap was developed. The bladder blade was replaced. The uterus was then incised sharply in a transverse fashion along the lower uterine segment. The incision was extended laterally. The 's head was delivered atraumatically to the sterile field, followed by the body. The nose and mouth were bulb suctioned. After a delay, the cord was clamped and cut. The infant was handed off the field. Cord blood was collected. The placenta was removed manually and was passed off the field. The uterus was exteriorized and cleared of all clots and debris. The uterine incision was reapproximated using 0 Monocryl in a running, locked fashion. A second, imbricating layer of the same suture was run. Excellent hemostasis resulted as did excellent reapproximation of the normal anatomy. The uterus was returned the abdomen. The pelvis was irrigated copiously with warmed normal audrey ine. Rigorous hemostasis was assured. The fascial layer was reapproximated using 0 Vicryl in a running fashion. The skin was closed with a running, subcuticular stitch of 4 0 Vicryl. Dermaflex was applied externally. Sponge, lap, needle and instrument counts were correct. The patient was taken to the recovery room in stable condition. The infant went to the nursery in stable condition. I was present and scrubbed the entire procedure. Specimen: Yes (Cord blood, placenta) Estimated Blood Loss: 640 Urine Output: 800 Drains: Yes ([place]) Packing: No Pathology: Yes (Placenta) Complications: None Condition: Stable Disposition: PACU [place] Baby Date of : 01/09/25 Time of : 18:41 Gestational Age by Date: 39 Infant gender: Female Weight (pounds): 8 Weight (ounces): 9 presentation: vertex position: Left Occiput Posterior Placenta delivery description: Manual Removal and Normal Configuration Cord Vessel Description: 3 Vessels and Delayed Cord Clamping score one minute: 8 score five minutes: 9
--- NOTE | 2025-01-09 19:16 | P.DS_ITS ---
DS: Admitting Diagnosis Discharge Date 01/11/25 Admitting Diagnosis IUP at 39 5/7 weeks SROM DS: Discharge Diagnosis Discharge Diagnosis (1) delivery delivered: Code(s): O82 - Encounter for delivery without indication Status: Acute OB - DS: Summary OB Procedures : NST OB Procedures Intrapartum: OB Procedures: : None Time Spent with Patient Time attestation: Total time spent providing and/or coordinating discharge services: DS: Data Data Completed and Pending Labs on day of discharge: Labs from last 24 hours 01/09/25 01/09/25 02:11 02:00 WBC 13.2 H RBC 4.50 Hgb 11.4 L Hct 35.7 L MCV 79.3 L MCH 25.3 L MCHC 31.9 L RDW 14.7 H Plt Count 256 MPV 10.8 H Immature Gran % (Auto) 0.6 H Neut % (Auto) 81.0 H Lymph % (Auto) 10.3 L [place] % (Auto) 7.3 Eos % (Auto) 0.5 Baso % (Auto) 0.3 Lymph # (Auto) 1.36 [place] # (Auto) 1.0 H Eos # (Auto) 0.1 Baso # (Auto) 0.0 Abs Immat Gran (auto) 0.08 H Absolute Neuts (auto) 10.7 H Absolute Nucleated RBC 0.000 Nucleated RBC % 0.0 Membranes Rupture Rom plus positive Syphilis IgG/IgM Ab Non-reactive Blood Type A Positive Antibody Screen Negative Discharge Plan Discharge Attending physician on discharge: Beka Lo Discharging Clinician: Beka Lo Patient Disposition: Home Activity: no shower, may drive after 2 weeks and pelvic rest Diet: regular Wound Care Instructions: incision open to air Discharge Instructions: Call or return if temperature above 100.4? F, increased abdominal pain, increased vaginal bleeding or any new problems. Patient Language: [place] Stand Alone Forms: General Discharge Information Follow-up/Referrals: Beka Lo MD [Physician, MEDICAL CARE EVALUATION SPECIALIST] - 4 Weeks Discharge Medications: New ibuprofen 600 mg tablet 600 mg PO Q6H PRN (Reason: cramps) Qty: 30 0RF oxycodone-acetaminophen [Percocet] 5-325 mg tablet 1 - 2 tablet PO Q6H PRN (Reason: pain) Qty: 30 0RF ferrous sulfate 325 mg (65 mg iron) tablet 325 mg PO DAILY Qty: 30 0RF Continued DHA 200 mg capsule PO Date of admission: 01/09/25 01:47 Primary Care Provider: Stas Engel V. Admitting Provider: Beka Lo Attending physician on admission: Beka Lo Condition: Stable
--- NOTE | 2025-01-09 19:53 | S_PTH ---
PATIENT: Lillian Lewis LOC: ANH[facility]2 U#:[id number] AGE/SX: 29/F ROOM: 278 RE01/09/[address]: Beka Lo MD : 1995 BED: 00 DIS: 01/11/2025 SPEC #: [id number] RECD: 01/10/25 06:44 STATUS: GHADA REQ #: [id number] PARISH: 01/09/25 19:[address]: Beka Lo DEPT: [facility] Surgical RECD BY: Ramya Alberto ENTERED: 01/10/25 06:45 SP TYPE: Surgical OTHR DR: Stas Engel MD Tissues: A - Placenta Procedures: Hematoxylin and Eosin Stain Gross and Microscopic Level 5
[2025-01-09] MEDS: OXYTOCIN 30 UNITS/NS 500 ML 30 UNITS/500 ML BAG 125 UNITS IV CONT (21:23)
[2025-01-09] MEDS: KETOROLAC 15 MG/ML VIAL (*BKC) IV PUSH (22:08)
--- NOTE | 2025-01-09 22:38 | OBPPTRN ---
Patient transferred to post room #278 via bed with LD HERI Allen and seed technician. Support person present. Oriented to unit, room, information board, rooming in, admission packet and security measures. Patient verbalizes understanding.
[2025-01-09] MEDS: LIDOCAINE 5% PATCH 1 PATCH TRANSDERM (23:07)
--- NOTE | 2025-01-09 23:12 | PC.NURSE ---
2146- This RN spoke with Dr. Ospina regarding pts temp of 101.1, Dr. Ospina gave no new orders at this time. Rec- continue to monitor pt and temps, if sx change or worsen call back to inform.
[2025-01-10] MEDS: DEXTROSE 5%/0.45% SOD CHL 1,000 ML 125 ML IV CONT (01:39)
[2025-01-10] MEDS: KETOROLAC 15 MG/ML VIAL (*BKC) IV PUSH ×2 (03:53→10:16)
[2025-01-10] MEDS: ACETAMINOPHEN 500 MG TABLET 1000 MG PO ×4 (03:53→22:49)
[2025-01-10 04:26] VITALS: BP 116/77; PULSE 92; RESP 14; TEMP 36.8; O2SAT 100
[2025-01-10 05:11] LABS: Hematocrit 28.7 % (37.0-47.0); Hemoglobin 8.6 g/dL (12.0-15.0); Mean Corpuscular HGB Conc 30.0 g/dl (32-36); Mean Corpuscular Hemoglobin 25.5 pg (26-34); Mean Corpuscular Volume 85.2 fl (80-100); Platelet Count Result 198 k/mm3 (150-375); Red Blood Count 3.37 M/mm3 (4.2-5.4); White Blood Count 20.6 K/mm3 (4.5-10.0)
[2025-01-10 05:33] LABS: Band Neutrophils Percent 10 % (0-6); Eosinophils Absolute Manual 0.20 K/mm3 (0.02-0.50); Eosinophils Percent Manual 1 % (0-4); Lymphocytes Absolute Manual 1.85 K/mm3 (1.1-4.5); Lymphocytes Percent Manual 9.0 % (18-44); Monocytes Absolute Manual 0.41 K/mm3 (0.1-0.90); Monocytes Percent Manual 2 % (3-9); Neutrophils Absolute Manual 18.12 K/mm3 (1.3-6.7); Neutrophils Percent Manual 78 % (46-73); Total Cells Counted 100
[2025-01-10 05:34] LABS: Macrocytosis Occasional (NORMAL); Schistocytes None Seen
--- NOTE | 2025-01-10 07:24 | WPDANLDPN2 ---
Anes-Prog Note L&D Date/Time: 01/10/25 07:24 Neuro status: Neuro function grossly intact. Cardiovascular status: normal Respiratory status: normal Airway patency: baseline Mental status: baseline Post-Op hydration status: normal Vital Signs: Last Vital Signs Temp 36.8 C 01/10/25 04:26 Pulse 92 01/10/25 04:26 Resp 14 01/10/25 04:26 BP 116/77 01/10/25 04:26 Pulse Ox 100 01/10/25 04:26 O2 Del Method Room Air 01/09/25 21:20 Pain score (VAS): 0 I/O: Intake & Output 01/09/25 01/09/25 01/10/25 15:59 23:59 07:59 Intake Total 2316.4 1000 Output Total 1465 600 Balance 2316.4 -1465 400 Post-procedural complaints: none Patient feedback: Patient satisfied with anesthetic care.
--- NOTE | 2025-01-10 07:25 | WPDANLDNPN2 ---
Anes-Prog Note L&D-Neuraxial Date/Time: 01/10/25 07:25 Patient feedback: Patient satisfied with post-operative pain management.
[2025-01-10] MEDS: SIMETHICONE 80 MG TAB.CHEW PO ×2 (08:50→11:32)
[2025-01-10] MEDS: MULTIVIT/MIN/PREN/FOL AC/IRON TABLET 1 TAB PO (08:50)
[2025-01-10] MEDS: DOCUSATE SODIUM 100 MG CAPSULE PO (08:50)
--- NOTE | 2025-01-10 09:25 | PM.OBPNVD ---
OB - PN: Subj Subjective Date/time seen: 01/10/25 09:25 Narrative: Pain OK. Tolerating diet. OB - PN: Obj Data Labs 01/10/25 03:49 Labs: Laboratory Results - last 24 hr 01/10/25 03:49 WBC 20.6 H RBC 3.37 L Hgb 8.6 L Hct 28.7 L MCV 85.2 D MCH 25.5 L MCHC 30.0 L RDW 15.1 H Plt Count 198 MPV 10.8 H Immature Gran % (Auto) Not Reportable Neut % (Auto) Not Reportable Lymph % (Auto) Not Reportable [place] % (Auto) Not Reportable Eos % (Auto) Not Reportable Baso % (Auto) Not Reportable Lymph # (Auto) Not Reportable [place] # (Auto) Not Reportable Eos # (Auto) Not Reportable Baso # (Auto) Not Reportable Abs Immat Gran (auto) Not Reportable Absolute Neuts (auto) Not Reportable Absolute Nucleated RBC Not Reportable Total Counted 100 Neutrophils % (Manual) 78 H Band Neutrophils % 10 H Lymphocytes % (Manual) 9.0 L Monocytes % (Manual) 2 L Eosinophils % (Manual) 1 Nucleated RBC % Not Reportable Abs Neuts (Manual) 18.12 H Abs Lymphs (Manual) 1.85 Abs Monocytes (Manual) 0.41 Absolute Eos (Manual) 0.20 Platelet Estimate Adequate Macrocytosis Occasional Schistocytes None seen OB - PN A/P Plan day: 1 Comments: A: POD#1, doing well. P: Routine care. Exam Narrative: AVSS I/O OK ABD soft, nontender, fundus firm. Incision c/d/i. EXT nontender
[2025-01-10 09:35] VITALS: BP 115/69; PULSE 98; RESP 18; TEMP 36.8; O2SAT 100
--- NOTE | 2025-01-10 13:58 | PC.NURSE ---
Discussed therapeutic pass with pt to visit infant at [facility] - education given on risks/ S/S to watch for and to go to nearest hospital if experiencing a change in condition while on leave. Pt verbalized understanding. Therapeautic pass consent to be signed and placed in chart.
[2025-01-10 14:50] VITALS: BP 121/72; PULSE 97; RESP 18; TEMP 36.3; O2SAT 98
[2025-01-10] MEDS: IBUPROFEN 600 MG TABLET PO ×2 (16:30→22:49)
--- NOTE | 2025-01-10 18:49 | PC.NURSE ---
Gave pt 1630 dose of tylenol and motrin to take while on her therapeutic pass. Education given to pt to not consume any other outside medications, substances not provided by her md and pt verbalized understanding
--- NOTE | 2025-01-10 21:29 | PC.NURSE ---
2114- Pt returned to unit with family from visiting at [facility]. PT stated she did not take any pain medication while on visit. Declines any pain medication at this time. This RN instructed pt that she should get back on the Tylenol/motrin schedule q 6 hours to prevent surgical pain from rebounding. Pt states she wants to take next dose at 2300.
[2025-01-10 21:30] VITALS: BP 113/73; PULSE 84; RESP 14; TEMP 36.6; O2SAT 100
[2025-01-11] MEDS: IBUPROFEN 600 MG TABLET PO ×2 (04:37→10:45)
[2025-01-11] MEDS: ACETAMINOPHEN 500 MG TABLET 1000 MG PO ×2 (04:37→10:45)
[2025-01-11 04:43] VITALS: BP 99/59; PULSE 64; RESP 14; TEMP 36.6; O2SAT 100
[2025-01-11 07:20] VITALS: BP 114/72; PULSE 74; RESP 18; TEMP 36.6; O2SAT 98
[2025-01-11] MEDS: MULTIVIT/MIN/PREN/FOL AC/IRON TABLET 1 TAB PO (09:00)
[2025-01-11] MEDS: DOCUSATE SODIUM 100 MG CAPSULE PO (09:00)
[2025-01-11] MEDS: SIMETHICONE 80 MG TAB.CHEW PO (09:00)
--- NOTE | 2025-01-11 09:10 | P.PNOB_ITS ---
OB - PN: Subj Subjective Date/time seen: 01/11/25 09:10 Narrative: Pain OK. Tolerating diet. Would like to go home. OB - PN: Obj Data Labs 01/10/25 03:49 OB - PN A/P Plan day: 2 Comments: A: POD#2, doing well. P: Home to f/u 4 weeks. Exam 2 Narrative: AVSS ABD soft, nontender, fundus firm. Incision c/d/i. EXT nontender
== END 2025-01-11 11:10 | disposition home or self-care (01) | DRG 786 ==
LOC: ANHLDR 19:17 → ANHOB2 21:45
PROVIDERS: Admitting Provider Obstetrics & Gynecology; PCP Pediatrics; Visit Provider Obstetrics & Gynecology
PROC: 10D00Z1 Extraction of Products of Conception, Low, Open Approach (ICD-10-PCS; CPT 59514; principal; 2025-01-09 18:15)
DX: O77.0 Labor and delivery complicated by meconium in amniotic fluid (principal); O41.1230 Chorioamnionitis, third trimester, not applicable or unspecified; Z37.0 Single live birth; Z3A.39 39 weeks gestation of pregnancy; O62.1 Secondary uterine inertia
CPT/HCPCS: 36415; 84112; 85025; 86593; 86850; 86900; 86901; 88307; A9270; G0378; G0379; J0456; J1171; J1200; J1885; J2004; J2274; J2371; J2405; J2590; J2704; J2795; J3010; J7030; J7050; J7120